=== PATIENT | female | born 1990 | race Caucasian/White ===

== ENCOUNTER 2022-01-19 15:48 | Outpatient (CLI) | payer BC, SELFPAY ==
[2022-01-19 18:14] LABS: Ferritin* 29.7 ng/mL (6.24-137.0)
== END 2022-01-19 15:49 | disposition home or self-care (01) ==
PROVIDERS: Visit Provider Obstetrics & Gynecology
DX: Z01.419 Encounter for gynecological examination (general) (routine) without abnormal findings (principal); N89.8 Other specified noninflammatory disorders of vagina; R79.0 Abnormal level of blood mineral; Z12.4 Encounter for screening for malignant neoplasm of cervix
CPT/HCPCS: 82728; 88174

== ENCOUNTER 2023-02-09 10:17 | Outpatient (CLI) | payer BC, SELFPAY | END 2023-02-09 10:18 | disposition home or self-care (01) | PROVIDERS: Visit Provider Physician Assistant | DX: Z01.419 Encounter for gynecological examination (general) (routine) without abnormal findings (principal); R60.0 Localized edema; R79.0 Abnormal level of blood mineral | CPT/HCPCS: 80048; 82728; 84443 ==

== ENCOUNTER 2024-03-14 13:52 | Outpatient (CLI) | payer BC, SELFPAY ==
[2024-03-21 21:44] LABS: HPV Source Cervical; HPV, High Risk by TMA Not Detected
== END 2024-03-14 13:53 | disposition home or self-care (01) ==
PROVIDERS: Visit Provider Obstetrics & Gynecology
DX: Z12.4 Encounter for screening for malignant neoplasm of cervix (principal)
CPT/HCPCS: 87624; 87625; 88141; 88142

== ENCOUNTER 2024-04-19 09:01 | Outpatient (CLI) | payer BC, SELFPAY ==
--- NOTE | 2024-04-19 09:15 | CRLHL7_ITS ---
For Patients: As a result of the Century Cures Act, medical imaging exams and procedure reports are released immediately into your electronic medical record. You may view this report before your referring provider. If you have questions, please contact your health care provider. INDICATION: Pelvic pain and cramping TECHNIQUE: Transabdominal and transvaginal scanning was performed. Transvaginal scanning was performed to optimally evaluate the endometrium and adnexa. Ovarian blood flow was evaluated with color-flow and pulsed Doppler. COMPARISON: None. FINDINGS: The uterus is mildly enlarged grossly normal in shape. The uterus measures 8.7 x 4.2 x 6.8 cm. No myometrial mass is evident. The endometrial stripe is normal in thickness at 6 mm. A complex 3.4 x 2.6 x 2.4 cm right ovarian cyst is demonstrated. The right ovary measures 4.4 x 3.3 x 3.3 cm and left 3.0 x 1.9 x 1.5 cm. Ovarian blood flow is demonstrated with color-flow and pulsed Doppler. No adnexal mass is evident. No free fluid is demonstrated. IMPRESSION: 1. Complex 3.4 cm right ovarian cyst. A 9-12 week follow up exam is recommended. 2. Mild uterine enlargement. Dictated by Won Jaffe MD @ 04/20/2024 10:13:46 AM (Electronically Signed)
== END 2024-04-19 09:02 | disposition home or self-care (01) ==
LOC: US 09:02
PROVIDERS: Visit Provider Obstetrics & Gynecology
DX: R10.2 Pelvic and perineal pain (principal); N83.201 Unspecified ovarian cyst, right side; N85.2 Hypertrophy of uterus
CPT/HCPCS: 76830; 76856; 93976

== ENCOUNTER 2025-04-10 13:48 | Outpatient (CLI) | payer BC, SELFPAY ==
[2025-04-10 19:55] LABS: Bacterial Vaginosis* Negative (Negative); Candida glab/krus NOT DETECTED (No Detected)
[2025-04-13 02:20] LABS: HPV Source Cervical
[2025-04-15 14:04] LABS: Pap Test Digital Imaging Done
== END 2025-04-10 13:49 | disposition home or self-care (01) ==
PROVIDERS: Visit Provider Obstetrics & Gynecology
DX: N89.8 Other specified noninflammatory disorders of vagina (principal); N92.6 Irregular menstruation, unspecified; Z12.4 Encounter for screening for malignant neoplasm of cervix; E78.6 Lipoprotein deficiency
CPT/HCPCS: 80061; 81513; 83001; 84146; 84403; 84443; 87481; 87624; 87625; 87661; 88141; 88142; 88175

== ENCOUNTER 2025-04-11 08:59 | Outpatient (CLI) | payer BC, SELFPAY ==
--- NOTE | 2025-04-11 09:15 | CRLHL7_ITS ---
For Patients: As a result of the Century Cures Act, medical imaging exams and procedure reports are released immediately into your electronic medical record. You may view this report before your referring provider. If you have questions, please contact your health care provider. INDICATION: Ovarian cyst COMPARISON: 04/19/2024 TECHNIQUE: 2D darnell-scale and color Doppler images were acquired of the pelvis using a transabdominal and transvaginal approach. Transvaginal imaging performed to better visualize the endometrial stripe and ovaries. FINDINGS: Sonographic images demonstrate a normal size and smooth outer contour of the uterus. Uterus measures 8.4 cm in length by 5.0 cm in AP diameter by 5.5 cm in transverse dimension. The myometrium has a normal uniform echotexture. The endometrial lining appears normal and measures 6.4 mm in composite thickness. The right ovary measures 3.5 x 2.0 x 2.2 cm in size and the left ovary measures 4.5 x 4.3 x 5.5 cm. The ovaries demonstrate normal arterial and venous blood flow on color Doppler analysis. There are no suspicious fluid collections within the cul-de-sac. Simple left ovarian cyst measures 4.5 x 3.9 x 3.9 cm. Previously noted right ovarian cyst is no longer present. IMPRESSION: 4.5 cm simple left ovarian cyst. Dictated by Dragan Rico MD @ 04/11/2025 1:51:59 PM (Electronically Signed)
== END 2025-04-11 09:00 | disposition home or self-care (01) ==
LOC: US 09:00
PROVIDERS: Visit Provider Obstetrics & Gynecology
DX: N83.209 Unspecified ovarian cyst, unspecified side (principal); N83.292 Other ovarian cyst, left side
CPT/HCPCS: 76830; 76856